=== PATIENT | male | born 1980 | race Caucasian/White ===

== ENCOUNTER 2022-08-09 17:45 | Emergency (ER) | payer OTHER, SELFPAY ==
[2022-08-09] VITALS (12 sets, daily range): BP systolic 140–166; BP diastolic 95–106; PULSE 70–91; RESP 18; TEMP 36.2; O2SAT 93–96; BMI 42.3
--- NOTE | 2022-08-09 18:04 | ED.GENADULT ---
HPI - General Adult General Chief complaint: Chest Pain Stated complaint: Chest pains Time Seen by Provider: 08/09/22 18:02 History of Present Illness HPI narrative: left sided chest pressure with palpitations x several days. denies sob or nausea 42-year-old man presenting with spouse to the emergency department with concern of left-sided chest discomfort/pressure/fluttering feeling that his been present for about 2 days now. Intensified after a difficult conversation with a family member. Just indicates a number of times degree of stress that he is experiencing. Does have a history of sleep apnea and uses a CPAP. No cough or cold symptoms recently. No fever. Discomfort isn't really pleuritic. He does occasionally have heartburn but does not appear that this is consistent with those symptoms. Has been having some soreness into his left back and left armpit as well. He was gardening today but this has been of longer duration. No lower extremity pain or swelling though has been treated for varicose veins. Otherwise left hip injury sustained in childhood and some low back disc issues. No history of heart problems or arrhythmias. Family noted with a brother with WPW and a father with numerous cardiac stents placed in his early 50s. Has been trying meditate of breathing but ultimately that does not seem to be helping either. Discomfort is not positional nor exertional. Related Data Previous Rx's Medication Instructions Recorded amoxicillin 875 mg-potassium 1 tab PO Q12H #20 tabs 04/02/22 clavulanate 125 mg tablet Allergies Allergy/AdvReac Type Severity Reaction Status Date / Time No Known Drug Allergies Allergy Verified 04/02/22 14:32 Review of Systems Status of ROS: Reports: 6 or more systems reviewed and unremarkable except as noted in History and below PFSH PFS Social History Smoking Status: Never smoker How often do you have a drink containing alcohol: never AUDIT-C Alcohol total score: 0 Non-prescribed substance use: denies use Exam Narrative: Exam Narrative: Very pleasant. Tall, large man. Looks a little sunburnt over face in upper back/neck. Breathing easily. Speaking easily. Cranial nerves 2-12 intact. Lungs are clear. He is moderately sore to palpation in the left rhomboid musculature in into the left trapezius. Moving all extremities without difficulty with good strength. Well perfused. Heart with regular rate and rhythm without murmur rub or gallop. Not able to reproduce discomfort to palpation over the anterior chest. There is no supraclavicular crepitus. Abdomen is overweight soft nontender. Lower extremities with trace dependent edema pretibial. Const: Vital Signs, click to edit/add: Vital Signs - 24 hr 08/09/22 17:49 08/09/22 18:23 08/09/22 18:30 Temperature 97.2 F L Pulse Rate 76 76 Pulse Rate [Right Pulse Oximeter] 91 Respiratory Rate 18 Blood Pressure Blood Pressure [Ri ght Upper Arm] 157/103 H Pulse Oximetry 94 95 95 Oxygen Delivery Me thod Room Air 08/09/22 18:31 08/09/22 18:45 08/09/22 19:00 Temperature Pulse Rate 78 70 Pulse Rate [Right Pulse Oximeter] Respiratory Rate Blood Pressure 166/106 H Blood Pressure [Ri ght Upper Arm] Pulse Oximetry 96 95 Oxygen Delivery Me thod 08/09/22 19:01 08/09/22 19:15 08/09/22 19:30 Temperature Pulse Rate 73 75 74 Pulse Rate [Right Pulse Oximeter] Respiratory Rate Blood Pressure 147/98 H Blood Pressure [Ri ght Upper Arm] Pulse Oximetry 95 96 93 Oxygen Delivery Me thod 08/09/22 19:31 Temperature Pulse Rate 78 Pulse Rate [Right Pulse Oximeter] Respiratory Rate Blood Pressure 140/95 H Blood Pressure [Ri ght Upper Arm] Pulse Oximetry 95 Oxygen Delivery Me thod Documenting provider has reviewed patient's vital signs: yes Course Vital Signs Vital signs: Initial Vital Signs Temperature 97.2 F L 08/09/22 17:49 Temperature Source Temporal Artery Scan 08/09/22 17:49 Pulse Rate 91 08/09/22 17:49 Respiratory Rate 18 08/09/22 17:49 Blood Pressure 157/103 H 08/09/22 17:49 Blood Pressure Mean 121 H 08/09/22 17:49 Blood Pressure Position Sitting 08/09/22 17:49 Pulse Oximetry 94 08/09/22 17:49 Oxygen Delivery Method Room Air 08/09/22 17:49 Vital Signs Temperature 97.2 F L 08/09/22 17:49 Pulse Rate 91 08/09/22 17:49 Respiratory Rate 18 08/09/22 17:49 Blood Pressure 157/103 H 08/09/22 17:49 Pulse Oximetry 94 08/09/22 17:49 Oxygen Delivery Method Room Air 08/09/22 17:49 Temperature 97.2 F L 08/09/22 17:49 Pulse Rate 78 08/09/22 19:31 Respiratory Rate 18 08/09/22 17:49 Blood Pressure 140/95 H 08/09/22 19:31 Pulse Oximetry 95 08/09/22 19:31 Oxygen Delivery Method Room Air 08/09/22 17:49 Medical Decision Making MDM Narrative Medical decision making narrative: I suspect that this is discomfort related to stressors that he is describing. Duration alone suggests against cardiac etiology. I do not see evidence of pericarditis or myocarditis in the EKG nor any precedent illness. Pulmonary embolus remains in differential along with ischemic heart disease min. Pneumothorax perhaps. Doubtful pulmonary or other chest lesion or pneumonia. Could be radicular from the discomfort in his back/muscle tension. Arrhythmia with residual discomfort. Initial EKG reviewed by me shows a partial right bundle branch block in normal sinus rhythm at rate of 67. There are no ischemic changes evident otherwise. Will be monitoring on monitoring coordinator. Evaluating labs and potential chest x-ray. Labs including troponin are normal. Blood pressures remain a little bit elevated. D-dimer reassuring against pulmonary embolus or vascular disruption. On re-examination does appear to have more point tenderness just left of the mid sternum: this may be an area where he has been worrying as well. This could also represent costochondritis. Anxiety could still be exacerbating. Does have reproducible discomfort in left periscapular area and left chest adjacent to the sternum. see patient discharge plan Lab Data Lab results reviewed: Yes I reviewed the patient's lab results Labs: Lab Results 08/09/22 Range/Units 18:30 Hgb 13.9 (13.5-17.5) gm/dL D-Dimer Quant (PE/DVT) 0.27 (0.00-0.50) ug/ml Sodium 137 (135-149) mmol/L Potassium 4.0 (3.6-5.1) mmol/L Chloride 104 (96-114) mmol/L Carbon Dioxide 24 (20-32) mmol/L BUN 16 (5-24) mg/dL Creatinine 0.6 (0.5-1.5) mg/dL Estimated Creat Clear 172.44 Estimated GFR 122 ml/min Glucose 104 (60-115) mg/dL Calcium 8.6 (8.4-10.6) mg/dL Magnesium 1.9 (1.5-2.6) mg/dL Troponin I < 0.01 L (0.01-0.04) ng/mL NT-Pro-B Natriuret Pep < 20 pg/mL Discharge Plan Discharge Clinical Impression: Other social stressor, Chest wall pain, Rhomboid muscle pain Patient Disposition: Home w/ Parent or Adult Condition: Stable Additional Instructions: I would consider taking 600-800 mg of ibuprofen 3 times a day over the next 5 days or alternative to that might be up to 500 mg of naproxen 2 times daily over the same time period. I have included handout for upper back stretches/strengthening that might help your left shoulder/back area discomfort. Might try to work through these a couple of times a day for a while. I would follow-up with your primary care provider to discuss further workup. Return for marked increase in pain, increasing shortness of breath. Prescriptions: No Action amoxicillin-pot clavulanate 875-125 mg tablet 1 tab PO Q12H Qty: 20 0RF Follow Up/Referrals: Provider,Not a Local [Primary Care Provider] - Stand Alone Forms: Right [employer] Info Instructions
[2022-08-09 18:41] LABS: Hemoglobin* 13.9 gm/dL (13.5-17.5)
[2022-08-09 18:59] LABS: Chloride* 104 mmol/L (96-114)
[2022-08-09 19:00] LABS: D Dimer Quantitative* 0.27 ug/ml (0.00-0.50); Sodium* 137 mmol/L (135-149)
[2022-08-09 19:02] LABS: Creatinine* 0.6 mg/dL (0.5-1.5); Est. Creatinine Clearance* 172.44; Estimated Glomerular Filt Rate 122 ml/min
[2022-08-09 19:03] LABS: Blood Urea Nitrogen* 16 mg/dL (5-24); Calcium* 8.6 mg/dL (8.4-10.6); Carbon Dioxide* 24 mmol/L (20-32); Glucose* 104 mg/dL (60-115)
[2022-08-09 19:17] LABS: Troponin I* < 0.01 ng/mL (0.01-0.04)
[2022-08-09 19:18] LABS: NT Pro B Type NatriureticPept* < 20 pg/mL
[2022-08-09 19:27] LABS: Magnesium* 1.9 mg/dL (1.5-2.6)
== END 2022-08-09 20:06 | disposition home or self-care (01) ==
PROVIDERS: Emergency Provider Family Medicine
DX: F43.9 Reaction to severe stress, unspecified (principal); R07.89 Other chest pain; M79.18 Myalgia, other site
CPT/HCPCS: 36415; 80048; 83735; 83880; 84484; 85018; 85379; 93005; 99284